=== PATIENT | female | born 1950 | race Caucasian/White ===

== ENCOUNTER 2017-06-19 19:21 | Inpatient (IN) | payer MEDICARE, MEDICAID ==
[2017-06-19] MEDS ORDERED: Ondansetron 4 MG/2 ML SDV IV PRN (20:58)
[2017-06-19] MEDS ORDERED: Sodium Chloride 0.9% 10 ML Syringe FLUSH PRN (20:58)
[2017-06-19] MEDS ORDERED: Furosemide 40 MG/4 ML VIAL IVPUSH ONE (21:02)
--- NOTE | 2017-06-19 21:10 | EDM.PDOC ---
ED HPI GENERAL MEDICAL PROBLEM - General Chief Complaint: General Stated Complaint: possible DVT to right leg Time Seen by Provider: 06/19/17 20:25 Source of Information: Reports: Patient - History of Present Illness INITIAL COMMENTS - FREE TEXT/NARRATIVE: This is a 67yo F here for concerns of shortness of breath and leg edema. Patient states her symptoms have worsened. She is concerned for a clot as she has had a DVT in the past. Denies any chest pain. Patient does have some bruising of the face and eyes from running into the cupboard. Onset: Gradual Duration: Day(s):, Getting Worse Location: Reports: Lower Extremity, Left, Lower Extremity, Right Severity: Moderate Improves with: Reports: None Worsens with: Reports: None Associated Symptoms: Reports: Shortness of Breath - Related Data Allergies Allergy/AdvReac Type Severity Reaction Status Date / Time No Known Allergies Allergy Verified 03/22/16 08:22 Home Meds: Home Meds Amitriptyline HCl [Amitriptyline HCl] 150 mg PO DAILY 09/15/14 [History] Metoprolol Tartrate [Lopressor] 50 mg PO BID 09/15/14 [History] Esomeprazole [NexIUM] 40 mg PO ACBREAKFAST 03/21/16 [History] Past Medical History HEENT History: Reports: Hard of Hearing, Impaired Vision Cardiovascular History: Reports: Hypertension Respiratory History: Reports: COPD Gastrointestinal History: Reports: GERD POOL CLEANER History: Reports: Musculoskeletal History: Reports: Back Pain, Chronic, Osteoarthritis Oncologic (Cancer) History: Reports: Renal - Infectious Disease History Infectious Disease History: Reports: Chicken Pox, Measles, Mumps - Past Surgical History Cardiovascular Surgical History: Reports: Other (See Below) GI Surgical History: Reports: Cholecystectomy Female Surgical History: Reports: Nephrectomy Other Female Surgeries/Procedures: left kidney removed Social & Family History - Family History Family Medical History: Noncontributory - Tobacco Use Smoking Status *Q: Former Smoker Years of Tobacco use: 53 Packs/Tins Daily: 1 Used Tobacco, but Quit: Yes Month Tobacco Last Used: November - Caffeine Use Caffeine Use: Reports: Coffee - Recreational Drug Use Recreational Drug Use: No ED ROS GENERAL - Review of Systems Review Of Systems: ROS reveals no pertinent complaints other than HPI. Constitutional: Reports: No Symptoms HEENT: Reports: No Symptoms Respiratory: Reports: Shortness of Breath Cardiovascular: Reports: Edema Endocrine: Reports: No Symptoms GI/Abdominal: Reports: No Symptoms Musculoskeletal: Reports: No Symptoms Skin: Reports: Bruising Neurological: Reports: No Symptoms Psychiatric: Reports: No Symptoms ED EXAM, GENERAL - Physical Exam Exam: See Below Exam Limited By: No Limitations General Appearance: Alert, WD/WN, No Apparent Distress Eye Exam: Bilateral Eye: EOMI, PERRL Ears: Normal External Exam Nose: Normal Inspection Throat/Mouth: Normal Inspection Head: Atraumatic, Normocephalic, Facial Tenderness, Other (bruising from injury of face) Respiratory/Chest: No Respiratory Distress, Lungs Clear Cardiovascular: Normal Peripheral Pulses, Other (3-4+ edema b/l legs) Peripheral Pulses: 2+: Dorsalis Pedis (L), Dorsalis Pedis (R) GI/Abdominal: Normal Bowel Sounds Back Exam: Normal Inspection Extremities: Pedal Edema Neurological: Alert, Oriented, CN II-XII Intact Psychiatric: Normal Affect, Normal Mood Skin Exam: Warm, Dry, Intact, Other (bruising b/l eyes) Course - Vital Signs Last Recorded V/S: Last Vital Signs Temp 36.8 C 06/19/17 20:25 Pulse 100 06/19/17 20:25 Resp 12 06/19/17 20:25 BP 180/84 H 06/19/17 20:25 Pulse Ox 97 06/19/17 20:25 - Orders/Labs/Meds Orders: Active Orders 24 hr Category Date Time Status Patient Status [ADT] Routine ADT 06/19/17 20:58 Ordered EKG Documentation Completion [RC] ASDIRECTED Care 06/19/17 19:55 Active Insert Nicole Catheter [Insert Urinary Catheter] [OM.PC] Care 06/19/17 21:15 Ordered Q24H Oxygen Therapy [RC] PRN Care 06/19/17 20:58 Ordered Urinary Catheter Assessment [RC] ASDIRECTED Care 06/19/17 21:02 Ordered VTE/DVT Education [RC] Per Unit Routine Care 06/19/17 20:58 Ordered Vital Signs [RC] Q4H Care 06/19/17 20:58 Ordered Regular Diet [DIET] Diet 06/20/17 Breakfast Ordered Chest 1V Frontal [CR] Stat Exams 06/19/17 19:47 Ordered CBC WITH AUTO DIFF [HEME] AM Lab 06/20/17 05:11 Ordered COMPREHENSIVE METABOLIC PN,CMP [CHEM] AM Lab 06/20/17 05:11 Ordered Amitriptyline HCl [Amitriptyline HCl] Med 06/20/17 08:00 Ordered 150 mg PO DAILY Esomeprazole [NexIUM] Med 06/20/17 07:00 Ordered 40 mg PO ACBREAKFAST Furosemide [Lasix] Med 06/20/17 08:00 Ordered 40 mg IVPUSH DAILY Lactated Ringers @ 125 MLS/HR(1000ml) Med 06/19/17 21:00 Ordered Lactated Ringers [Ringers, Lactated] 1,000 ml IV ASDIRECTED Metoprolol Tartrate [Lopressor] Med 06/20/17 08:00 Ordered 50 mg PO BID Ondansetron [Zofran] Med 06/19/17 20:58 Ordered 4 mg IV Q4H PRN Sodium Chloride 0.9% [Saline Flush] Med 06/19/17 20:58 Ordered 10 ml FLUSH ASDIRECTED PRN Peripheral IV Insertion Adult [OM.PC] Routine Oth 06/19/17 20:58 Ordered Resuscitation Status Routine Resus Stat 06/19/17 20:58 Ordered Medication Orders Furosemide (Lasix) 40 mg IVPUSH DAILY CARLITOS Lactated Ringer's (Ringers, Lactated) 1,000 mls @ 125 mls/hr IV ASDIRECTED [facility] Ondansetron HCl (Zofran) 4 mg IV Q4H PRN PRN Reason: Nausea/Vomiting Sodium Chloride (Saline Flush) 10 ml FLUSH ASDIRECTED PRN PRN Reason: Keep Vein Open Labs: Laboratory Tests 06/19/17 06/19/17 06/19/17 Range/Units 19:44 20:00 20:00 WBC 11.2 H D (4.0-11.0) K/uL RBC 3.99 (3.80-5.80) M/uL Hgb 11.5 (11.5-16.5) g/dL Hct 35.2 L (37.0-47.0) % MCV 88 (76-96) fL MCH 28.8 (27.0-32.0) pg MCHC 32.7 (31.0-35.0) g/dL RDW 15.0 (11.0-16.0) % Plt Count 281 (150-500) K/uL MPV 9.0 (6.0-10.0) fL Neut % (Auto) 92.3 H (45.0-70.0) % Lymph % (Auto) 5.1 L (20.0-40.0) % [place] % (Auto) 2.5 L (3.0-10.0) % Eos % (Auto) 0.1 L (1.0-5.0) % Baso % (Auto) 0.0 (0.0-0.5) % Neut # (Auto) 10.29 H (2.00-7.50) K/uL Lymph # (Auto) 0.57 L (1.50-4.00) K/uL [place] # (Auto) 0.28 (0.20-0.80) K/uL Eos # (Auto) 0.01 L (0.04-0.40) K/uL Baso # (Auto) 0.00 L (0.02-0.10) K/uL PT (9.0-11.5) sec INR (1.0-3.5) D-Dimer, Quantitative (0-400) ng/mL Sodium 139 (136-145) mmol/L Potassium 4.4 (3.5-5.1) mmol/L Chloride 103 (98-107) mmol/L Carbon Dioxide 26.7 (21.0-32.0) mmol/L Anion Gap 13.7 (5.0-15.0) mmol/L BUN 44 H D (8-26) mg/dL Creatinine 1.98 H D (0.55-1.02) mg/dL Est Cr Clr Drug Dosing TNP Estimated GFR (MDRD) 25 L (>60) MLS/MIN BUN/Creatinine Ratio 22.2 (6-25) Glucose 111 H (74-100) mg/dL Calcium 9.1 (8.5-10.1) mg/dL Total Bilirubin 0.3 (0.0-1.0) mg/dL AST 44 H (15-37) U/L ALT 42 (12-78) U/L Alkaline Phosphatase 38 L (46-116) U/L Troponin I (0.000-0.060) ng/mL B-Natriuretic Peptide (0-125) pg/mL Total Protein 7.5 (6.4-8.2) g/dL Albumin 3.7 (3.4-5.0) g/dL Globulin 3.8 (2.2-4.2) g/dL Albumin/Globulin Ratio 1.0 (0.8-2.0) TSH, Ultra Sensitive 0.544 D (0.358-3.740) uIU/mL Urine Color Yellow Urine Appearance Clear (CLEAR) Urine pH 6.0 (5.0-8.0) Ur Specific Flushing 1.010 (1.003-1.030) Urine Protein Negative (NEGATIVE) mg/dL Urine Glucose (UA) Negative (NEGATIVE) mg/dL Urine Ketones Negative (NEGATIVE) mg/dL Urine Occult Blood Small (NEGATIVE) Urine Nitrite Negative (NEGATIVE) Urine Bilirubin Negative (NEGATIVE) Urine Urobilinogen 0.2 (0.2-1.0) E.U./dL Ur Leukocyte Esterase Negative (NEGATIVE) Urine RBC Not seen /HPF Urine WBC Not seen /HPF Ur Squamous Epith Cells Few /HPF Urine Bacteria Occasional /HPF 06/19/17 06/19/17 06/19/17 Range/Units 20:00 20:00 20:00 WBC (4.0-11.0) K/uL RBC (3.80-5.80) M/uL Hgb (11.5-16.5) g/dL Hct (37.0-47.0) % MCV (76-96) fL MCH (27.0-32.0) pg MCHC (31.0-35.0) g/dL RDW (11.0-16.0) % Plt Count (150-500) K/uL MPV (6.0-10.0) fL Neut % (Auto) (45.0-70.0) % Lymph % (Auto) (20.0-40.0) % [place] % (Auto) (3.0-10.0) % Eos % (Auto) (1.0-5.0) % Baso % (Auto) (0.0-0.5) % Neut # (Auto) (2.00-7.50) K/uL Lymph # (Auto) (1.50-4.00) K/uL [place] # (Auto) (0.20-0.80) K/uL Eos # (Auto) (0.04-0.40) K/uL Baso # (Auto) (0.02-0.10) K/uL PT 11.2 D (9.0-11.5) sec INR 1.1 D (1.0-3.5) D-Dimer, Quantitative 427 H (0-400) ng/mL Sodium (136-145) mmol/L Potassium (3.5-5.1) mmol/L Chloride (98-107) mmol/L Carbon Dioxide (21.0-32.0) mmol/L Anion Gap (5.0-15.0) mmol/L BUN (8-26) mg/dL Creatinine (0.55-1.02) mg/dL Est Cr Clr Drug Dosing Estimated GFR (MDRD) (>60) MLS/MIN BUN/Creatinine Ratio (6-25) Glucose (74-100) mg/dL Calcium (8.5-10.1) mg/dL Total Bilirubin (0.0-1.0) mg/dL AST (15-37) U/L ALT (12-78) U/L Alkaline Phosphatase (46-116) U/L Troponin I < 0.017 (0.000-0.060) ng/mL B-Natriuretic Peptide 858 H D (0-125) pg/mL Total Protein (6.4-8.2) g/dL Albumin (3.4-5.0) g/dL Globulin (2.2-4.2) g/dL Albumin/Globulin Ratio (0.8-2.0) TSH, Ultra Sensitive (0.358-3.740) uIU/mL Urine Color Urine Appearance (CLEAR) Urine pH (5.0-8.0) Ur Specific [place] (1.003-1.030) Urine Protein (NEGATIVE) mg/dL Urine Glucose (UA) (NEGATIVE) mg/dL Urine Ketones (NEGATIVE) mg/dL Urine Occult Blood (NEGATIVE) Urine Nitrite (NEGATIVE) Urine Bilirubin (NEGATIVE) Urine Urobilinogen (0.2-1.0) E.U./dL Ur Leukocyte Esterase (NEGATIVE) Urine RBC /HPF Urine WBC /HPF Ur Squamous Epith Cells /HPF Urine Bacteria /HPF Meds: Medications Generic Name Dose Route Start Last Admin Trade Name Freq PRN Reason Stop Dose Admin Furosemide 40 mg 06/20/17 08:00 Lasix IVPUSH DAILY CARLITOS Lactated Ringer's 1,000 mls @ 125 mls/hr 06/19/17 21:00 Ringers, Lactated IV ASDIRECTED [facility] Ondansetron HCl 4 mg 06/19/17 20:58 Zofran IV Q4H PRN Nausea/Vomiting Sodium Chloride 10 ml 06/19/17 20:58 Saline Flush FLUSH ASDIRECTED PRN Keep Vein Open Discontinued Medications Generic Name Dose Route Start Last Admin Trade Name Luzmaria PRN Reason Stop Dose Admin Furosemide 40 mg 06/19/17 21:02 Lasix IVPUSH 06/19/17 21:03 NOW ONE Departure - Departure Time of Disposition: 21:00 Disposition: Admitted As Inpatient 65 Condition: Fair Clinical Impression: Acute on chronic kidney failure Qualifiers: Acute renal failure type: unspecified Chronic kidney disease stage: stage 4 ( severe) Qualified Code(s): N17.9 - Acute kidney failure, unspecified; N18.4 - Chronic kidney disease, stage 4 (severe); N18.4 - Chronic kidney disease, stage 4 (severe); N18.4 - Chronic kidney disease, stage 4 (severe); N18.4 - Chronic kidney disease, stage 4 (severe) CHF (congestive heart failure) Qualifiers: Congestive heart failure type: unspecified congestive heart failure type Congestive heart failure chronicity: acute Qualified Code(s): I50.9 - Heart failure, unspecified - Discharge Information Referrals: PCP,None [Primary Care Provider] - Care Plan Goals: Patient will be admitted for Acute on chronic renal failure with suspected CHF. Patient placed on telemetry and we will monitor strict I/Os. Repeat labs in am. Start lasix while closely monitoring renal function and gentle hydration. Nicole cath for I/O's. - Problem List Review Problem List Initiated/Reviewed/Updated: Yes - My Orders Last 24 Hours: My Active Orders 06/19/17 19:47 Chest 1V Frontal [CR] Stat 06/19/17 19:55 EKG Documentation Completion [RC] ASDIRECTED 06/19/17 20:58 Patient Status [ADT] Routine Oxygen Therapy [RC] PRN VTE/DVT Education [RC] Per Unit Routine Vital Signs [RC] Q4H Ondansetron [Zofran] 4 mg IV Q4H PRN Sodium Chloride 0.9% [Saline Flush] 10 ml FLUSH ASDIRECTED PRN Peripheral IV Insertion Adult [OM.PC] Routine Resuscitation Status Routine 06/19/17 21:00 Lactated Ringers @ 125 MLS/HR(1000ml) Lactated Ringers [Ringers, Lactated] 1, 000 ml IV ASDIRECTED 06/19/17 21:02 Urinary Catheter Assessment [RC] ASDIRECTED 06/19/17 21:15 Insert Nicole Catheter [Insert Urinary Catheter] [OM.PC] Q24H 06/20/17 05:11 CBC WITH AUTO DIFF [HEME] AM COMPREHENSIVE METABOLIC PN,CMP [CHEM] AM 06/20/17 07:00 Esomeprazole [NexIUM] 40 mg PO ACBREAKFAST 06/20/17 08:00 Amitriptyline HCl [Amitriptyline HCl] 150 mg PO DAILY Furosemide [Lasix] 40 mg IVPUSH DAILY Metoprolol Tartrate [Lopressor] 50 mg PO BID 06/20/17 Breakfast Regular Diet [DIET] - Assessment/Plan Last 24 Hours: My Active Orders 06/19/17 19:47 Chest 1V Frontal [CR] Stat 06/19/17 19:55 EKG Documentation Completion [RC] ASDIRECTED 06/19/17 20:58 Patient Status [ADT] Routine Oxygen Therapy [RC] PRN VTE/DVT Education [RC] Per Unit Routine Vital Signs [RC] Q4H Ondansetron [Zofran] 4 mg IV Q4H PRN Sodium Chloride 0.9% [Saline Flush] 10 ml FLUSH ASDIRECTED PRN Peripheral IV Insertion Adult [OM.PC] Routine Resuscitation Status Routine 06/19/17 21:00 Lactated Ringers @ 125 MLS/HR(1000ml) Lactated Ringers [Ringers, Lactated] 1, 000 ml IV ASDIRECTED 06/19/17 21:02 Urinary Catheter Assessment [RC] ASDIRECTED 06/19/17 21:15 Insert Nicole Catheter [Insert Urinary Catheter] [OM.PC] Q24H 06/20/17 05:11 CBC WITH AUTO DIFF [HEME] AM COMPREHENSIVE METABOLIC PN,CMP [CHEM] AM 06/20/17 07:00 Esomeprazole [NexIUM] 40 mg PO ACBREAKFAST 06/20/17 08:00 Amitriptyline HCl [Amitriptyline HCl] 150 mg PO DAILY Furosemide [Lasix] 40 mg IVPUSH DAILY Metoprolol Tartrate [Lopressor] 50 mg PO BID 06/20/17 Breakfast Regular Diet [DIET]
[2017-06-19] MEDS: Lactated Ringers 1,000 ML IV SCH (21:42)
[2017-06-19] MEDS ORDERED: Metoprolol Tartrate 50 MG Tab ONE (21:53)
[2017-06-19] MEDS ORDERED: Amitriptyline 25 MG Tab ONE (22:02)
[2017-06-19] MEDS: Metoprolol Tartrate 50 MG Tab PO SCH (22:03)
[2017-06-20] MEDS: Lactated Ringers 1,000 ML IV SCH ×2 (06:27→16:02)
[2017-06-20] MEDS: Esomeprazole 40 MG Cap PO SCH (07:57)
[2017-06-20] MEDS ORDERED: AMITRIPTYLINE HCL 150 MG PO SCH (08:00)
[2017-06-20] MEDS ORDERED: Furosemide 40 MG/4 ML VIAL IVPUSH SCH (08:00)
--- NOTE | 2017-06-20 09:42 | PCM.PN ---
- General Info Date of Service: 06/20/17 Subjective Update: Patient states she is breathing much better. Denies any chest pain but continues to have some right leg pain. She does have a history of DVT's. Functional Status: Reports: Pain Controlled, Tolerating Diet, Ambulating, Urinating - Review of Systems General: Reports: No Symptoms Pulmonary: Reports: No Symptoms Cardiovascular: Reports: Edema Gastrointestinal: Reports: No Symptoms Musculoskeletal: Reports: Leg Pain Skin: Reports: No Symptoms Neurological: Reports: No Symptoms Psychiatric: Reports: No Symptoms - Patient Data Vitals - Most Recent: Last Vital Signs Temp 36.4 C 06/20/17 04:00 Pulse 82 06/20/17 04:00 Resp 12 06/20/17 04:00 BP 145/90 H 06/19/17 22:03 Pulse Ox 96 06/20/17 04:00 Weight - Most Recent: 76.975 kg I&O - Last 24 Hours: Intake & Output 06/19/17 06/20/17 06/20/17 22:59 06:59 14:59 Intake Total 1250 Output Total 5300 Balance -4050 Lab Results Last 24 Hours: Laboratory Results - last 24 hr 06/20/17 06/20/17 Range/Units 07:20 07:20 WBC 9.7 (4.0-11.0) K/uL RBC 3.74 L (3.80-5.80) M/uL Hgb 10.8 L (11.5-16.5) g/dL Hct 32.7 L (37.0-47.0) % MCV 87 (76-96) fL MCH 28.9 (27.0-32.0) pg MCHC 33.0 (31.0-35.0) g/dL RDW 14.9 (11.0-16.0) % Plt Count 266 (150-500) K/uL MPV 9.5 (6.0-10.0) fL Neut % (Auto) 68.7 (45.0-70.0) % Lymph % (Auto) 22.4 (20.0-40.0) % [place] % (Auto) 8.7 (3.0-10.0) % Eos % (Auto) 0.2 L (1.0-5.0) % Baso % (Auto) 0.0 (0.0-0.5) % Neut # (Auto) 6.68 (2.00-7.50) K/uL Lymph # (Auto) 2.18 (1.50-4.00) K/uL [place] # (Auto) 0.85 H (0.20-0.80) K/uL Eos # (Auto) 0.02 L (0.04-0.40) K/uL Baso # (Auto) 0.00 L (0.02-0.10) K/uL Sodium 143 (136-145) mmol/L Potassium 3.6 (3.5-5.1) mmol/L Chloride 105 (98-107) mmol/L Carbon Dioxide 28.9 (21.0-32.0) mmol/L Anion Gap 12.7 (5.0-15.0) mmol/L BUN 47 H (8-26) mg/dL Creatinine 1.74 H (0.55-1.02) mg/dL Est Cr Clr Drug Dosing 24.47 mL/min Estimated GFR (MDRD) 29 L (>60) MLS/MIN BUN/Creatinine Ratio 27.0 H (6-25) Glucose 85 (74-100) mg/dL Calcium 8.8 (8.5-10.1) mg/dL Total Bilirubin 0.4 D (0.0-1.0) mg/dL AST 31 (15-37) U/L ALT 36 (12-78) U/L Alkaline Phosphatase 30 L (46-116) U/L Total Protein 6.5 (6.4-8.2) g/dL Albumin 3.2 L (3.4-5.0) g/dL Globulin 3.3 (2.2-4.2) g/dL Albumin/Globulin Ratio 1.0 (0.8-2.0) Med Orders - Current: Current Medications Amitriptyline HCl (Elavil) 150 mg PO BEDTIME CARLITOS Esomeprazole Magnesium (Nexium) 40 mg PO ACBREAKFAST CARLITOS Last Admin: 06/20/17 07:57 Dose: 40 mg Furosemide (Lasix) 40 mg IVPUSH DAILY CARLITOS Last Admin: 06/20/17 07:57 Dose: 40 mg Lactated Ringer's (Ringers, Lactated) 1,000 mls @ 125 mls/hr IV ASDIRECTED CARLITOS Last Admin: 06/20/17 06:27 Dose: 125 mls/hr Metoprolol Tartrate (Lopressor) 50 mg PO BID [facility] Last Admin: 06/19/17 22:03 Dose: 50 mg Ondansetron HCl (Zofran) 4 mg IV Q4H PRN PRN Reason: Nausea/Vomiting Sodium Chloride (Saline Flush) 10 ml FLUSH ASDIRECTED PRN PRN Reason: Keep Vein Open Discontinued Medications Amitriptyline HCl (Elavil) Confirm Administered Dose 150 mg .ROUTE .STK-MED ONE Stop: 06/19/17 22:03 Last Admin: 06/20/17 08:05 Dose: Not Given Furosemide (Lasix) 40 mg IVPUSH NOW ONE Stop: 06/19/17 21:03 Last Admin: 06/19/17 21:41 Dose: 40 mg Metoprolol Tartrate (Lopressor) Confirm Administered Dose 50 mg .ROUTE .STK-MED ONE Stop: 06/19/17 21:54 Last Admin: 06/20/17 08:04 Dose: Not Given Non-Formulary Medication (Amitriptyline Hcl [Amitriptyline Hcl]) 150 mg PO DAILY [facility] Last Admin: 06/19/17 22:04 Dose: 150 mg - Exam General: Alert, Oriented, Cooperative HEENT: Pupils Equal, Pupils Reactive, EOMI Lungs: Clear to Auscultation, Normal Respiratory Effort Cardiovascular: Regular Rate, Regular Rhythm GI/Abdominal Exam: Normal Bowel Sounds Extremities: Pedal Edema, Leg Pain (right) Skin: Warm, Dry, Intact Psy/Mental Status: Alert, Normal Affect, Normal Mood - Problem List & Annotations (1) Acute on chronic kidney failure SNOMED Code(s): 236537464 Code(s): N17.9 - ACUTE KIDNEY FAILURE, UNSPECIFIED; N18.9 - CHRONIC KIDNEY DISEASE, UNSPECIFIED Status: Acute Priority: High Current Visit: Yes Qualifiers: Acute renal failure type: unspecified Chronic kidney disease stage: stage 4 (severe) Qualified Code(s): N17.9 - Acute kidney failure, unspecified; N18.4 - Chronic kidney disease, stage 4 (severe); N18.4 - Chronic kidney disease , stage 4 (severe); N18.4 - Chronic kidney disease, stage 4 (severe); N18.4 - Chronic kidney disease, stage 4 (severe) (2) CHF (congestive heart failure) SNOMED Code(s): 96954901 Code(s): I50.9 - HEART FAILURE, UNSPECIFIED Status: Acute Priority: High Current Visit: Yes Qualifiers: Congestive heart failure type: unspecified congestive heart failure type Congestive heart failure chronicity: acute Qualified Code(s): I50.9 - Heart failure, unspecified - Problem List Review Problem List Initiated/Reviewed/Updated: Yes - My Orders Last 24 Hours: My Active Orders 06/19/17 21:02 Urinary Catheter Assessment [RC] Q12H 06/19/17 21:14 Telemetry Monitoring [Cardiac Monitoring] [RC] .As Directed 06/19/17 21:15 Insert Nicole Catheter [Insert Urinary Catheter] [OM.PC] Q24H 06/20/17 07:00 Esomeprazole [NexIUM] 40 mg PO ACBREAKFAST 06/20/17 08:00 Furosemide [Lasix] 40 mg IVPUSH DAILY Metoprolol Tartrate [Lopressor] 50 mg PO BID 06/20/17 08:03 CULTURE MRSA SURVEY [RM] Routine 06/20/17 08:09 MAYURI Hose [Antiembolic Hose] [OM.PC] Routine 06/20/17 20:00 Amitriptyline [Elavil] 150 mg PO BEDTIME Furosemide [Lasix] 40 mg IVPUSH BID 06/20/17 Breakfast Heart Healthy Diet [DIET] - Plan Plan:: Improving renal function. Improved symptomatically. We will continue diuresis and repeat renal function in am. Continue gentle hydration. ECHO ordered - but no one available to do ECHO until next week. U/S of right leg Venous ordered. F/u results.
--- NOTE | 2017-06-20 11:25 | CR ---
DATE OF SERVICE: 06/19/17 CLINICAL DATA: shortness of breath AP PORTABLE CHEST: Comparison is made to a prior exam dated 06/12/17. The heart and lungs are stable. No evidence of acute intrathoracic disease. [id number] [facility]
[2017-06-20] MEDS: Metoprolol Tartrate 50 MG Tab PO SCH (11:26)
--- NOTE | 2017-06-20 11:51 | US ---
DATE OF SERVICE: 06/20/17 CLINICAL DATA: leg pain RIGHT LEG VENOUS DOPPLER: There is echogenic material within the right common femoral vein and proximal superficial femoral vein. They are noncompressible with no Doppler flow consistent with DVT. The remaining deep venous system is negative. IMPRESSION: Positive exam for DVT. The patient's physician was notified of the finding by telephone and by [facility] preliminary radiology report. [id number] [facility]
[2017-06-20] MEDS ORDERED: traMADol 50 MG Tab PO PRN (14:31)
[2017-06-20] MEDS ORDERED: Non-Formulary Medication 1 Each (Hydrocodone/Acetaminophen [Hydrocodon-Acetaminoph 7.5-325 PO PRN (14:31)
[2017-06-20] MEDS ORDERED: Metoprolol Tartrate 50 MG Tab PO SCH (14:32)
[2017-06-20] MEDS ORDERED: Acetaminophen/HYDROcodone 325-10 MG Tab PO PRN (15:12)
[2017-06-20] MEDS ORDERED: Aspirin 81 MG Tab.Chew ONE (16:20)
[2017-06-20] MEDS ORDERED: Levofloxacin 750 MG Tab ONE (16:20)
[2017-06-20] MEDS: Furosemide 40 MG/4 ML VIAL IVPUSH SCH (16:23)
[2017-06-20] MEDS: Levofloxacin 750 MG Tab PO SCH (16:23)
[2017-06-20] MEDS: Aspirin 81 MG Tab.EC PO SCH (16:24)
[2017-06-20] MEDS: Apixaban 2.5 MG Tab PO SCH ×2 (16:25→19:45)
--- NOTE | 2017-06-20 17:48 | PCM.SN ---
- Free Text/Narrative Note: Discussed DVT and use of anticoagulation with risks and benefits. Patient agrees to plan of care and use of Eliquis.
[2017-06-20] MEDS: Diltiazem IR 60 MG Tab PO SCH (19:30)
[2017-06-20] MEDS: Metoprolol Tartrate 25 MG Tab PO SCH (19:31)
[2017-06-20] MEDS ORDERED: Non-Formulary Medication 1 Each (Fluticasone/Salmeterol [Advair 250-50 Diskus] 1 EACH) INH SCH (20:00)
[2017-06-20] MEDS ORDERED: DILTIAZEM 60 MG PO SCH (20:00)
[2017-06-20] MEDS ORDERED: Amitriptyline 25 MG Tab PO SCH (20:00)
[2017-06-20] MEDS ORDERED: Apixaban 5 MG Tab PO SCH (20:00)
[2017-06-20] MEDS: Formoterol/Mometasone 200-5 MCG 8.8 GM Inhaler IH SCH (21:00)
[2017-06-21] MEDS: Lactated Ringers 1,000 ML IV SCH (00:32)
[2017-06-21] MEDS: Esomeprazole 40 MG Cap PO SCH (06:26)
[2017-06-21] MEDS: Aspirin 81 MG Tab.EC PO SCH (07:33)
[2017-06-21] MEDS: Metoprolol Tartrate 25 MG Tab PO SCH (07:33)
[2017-06-21] MEDS: Furosemide 40 MG/4 ML VIAL IVPUSH SCH (07:33)
[2017-06-21] MEDS: Levofloxacin 750 MG Tab PO SCH (07:33)
[2017-06-21] MEDS: Diltiazem IR 60 MG Tab PO SCH (07:34)
[2017-06-21] MEDS: Formoterol/Mometasone 200-5 MCG 8.8 GM Inhaler IH SCH (07:36)
[2017-06-21] MEDS: Apixaban 2.5 MG Tab PO SCH (07:36)
[2017-06-21 07:37] VITALS: BP 155/76
[2017-06-21] MEDS ORDERED: CALCITONIN INH SCH (08:00)
[2017-06-21] MEDS ORDERED: Non-Formulary Medication 1 Each (Fenofibrate [Fenofibrate] 160 MG) PO SCH (08:00)
--- NOTE | 2017-06-21 15:51 | PCM.DCSUM1 ---
Discharge Summary - Discharge Data Discharge Date: 06/21/17 Discharge Disposition: Home, Self-Care 01 Condition: Good - Discharge Diagnosis/Problem(s) (1) Acute on chronic kidney failure SNOMED Code(s): 892714202 ICD Code: N17.9 - ACUTE KIDNEY FAILURE, UNSPECIFIED; N18.9 - CHRONIC KIDNEY DISEASE, UNSPECIFIED Status: Acute Priority: High Qualifiers: Acute renal failure type: unspecified Chronic kidney disease stage: stage 4 (severe) Qualified Code(s): N17.9 - Acute kidney failure, unspecified; N18.4 - Chronic kidney disease, stage 4 (severe); N18.4 - Chronic kidney disease , stage 4 (severe); N18.4 - Chronic kidney disease, stage 4 (severe); N18.4 - Chronic kidney disease, stage 4 (severe) (2) CHF (congestive heart failure) SNOMED Code(s): 81559181 ICD Code: I50.9 - HEART FAILURE, UNSPECIFIED Status: Acute Priority: High Qualifiers: Congestive heart failure type: unspecified congestive heart failure type Congestive heart failure chronicity: acute Qualified Code(s): I50.9 - Heart failure, unspecified - Patient Instructions Diet: Usual Diet as Tolerated Activity: As Tolerated Notify Provider of: Fever - Discharge Plan Home Medications: Home Meds Amitriptyline HCl [Amitriptyline HCl] 150 mg PO BEDTIME 09/15/14 [History] Metoprolol Tartrate [Lopressor] 25 mg PO BID 09/15/14 [History] Esomeprazole [NexIUM] 40 mg PO ACBREAKFAST 03/21/16 [History] Aspirin [Halfprin] 81 mg PO DAILY 06/19/17 [History] Calcitonin ([place]) [Miacalcin] 200 unit INH DAILY 06/19/17 [History] Diltiazem [Cardizem SR] 60 mg PO BID 06/19/17 [History] Fenofibrate 160 mg PO DAILY 06/19/17 [History] Fluticasone/Salmeterol [Advair 250-50 Diskus] 1 each INH BID 06/19/17 [History] Hydrocodone/Acetaminophen [Hydrocodon-Acetaminoph 7.5-325] 1 tab PO Q4HR PRN [History] Levofloxacin 750 mg PO DAILY 06/19/17 [History] traMADol [Ultram] 50 mg PO BID PRN 06/19/17 [History] predniSONE [Prednisone] See Taper PO DAILY 06/20/17 [History] Patient Handouts: Furosemide injection, Apixaban oral tablets, Deep Vein Thrombosis Forms: ED Department Discharge Referrals: PCP,None [Primary Care Provider] - - Discharge Summary/Plan Comment DC Time >30 min.: Yes Discharge Summary/Plan Comment: Discussed discharge and follow up. Patient will continue on Eliquis for her DVT. Discussed lifetime DVT prophylaxis due to recurrence and for further workup and management of her hypercoagulable state. Patient agrees on f/u for renal function and ECHO. F/u next week for ECHO and re-evaluation. - Patient Data Vitals - Most Recent: Last Vital Signs Temp 36.1 C 06/20/17 16:00 Pulse 71 06/21/17 07:34 Resp 16 06/20/17 19:31 BP 155/76 H 06/21/17 07:34 Pulse Ox 96 06/20/17 20:58 Weight - Most Recent: 71.849 kg I&O - Last 24 hours: Intake & Output 06/21/17 06/21/17 06/21/17 06:59 14:59 22:59 Intake Total 1980 Output Total 2900 Balance -920 Lab Results - Last 24 hrs: Laboratory Results - last 24 hr 06/21/17 06/21/17 Range/Units 07:20 07:20 WBC 8.4 (4.0-11.0) K/uL RBC 4.51 (3.80-5.80) M/uL Hgb 11.2 L (11.5-16.5) g/dL Hct 36.1 L (37.0-47.0) % MCV 86 (76-96) fL MCH 29.0 (27.0-32.0) pg MCHC 33.9 (31.0-35.0) g/dL RDW 14.8 (11.0-16.0) % Plt Count 225 (150-500) K/uL MPV 9.4 (6.0-10.0) fL Neut % (Auto) 48.4 (45.0-70.0) % Lymph % (Auto) 37.7 (20.0-40.0) % [place] % (Auto) 11.5 H (3.0-10.0) % Eos % (Auto) 2.2 (1.0-5.0) % Baso % (Auto) 0.2 (0.0-0.5) % Neut # (Auto) 4.05 (2.00-7.50) K/uL Lymph # (Auto) 3.15 (1.50-4.00) K/uL [place] # (Auto) 0.96 H (0.20-0.80) K/uL Eos # (Auto) 0.18 (0.04-0.40) K/uL Baso # (Auto) 0.02 (0.02-0.10) K/uL Sodium 140 (136-145) mmol/L Potassium 4.0 (3.5-5.1) mmol/L Chloride 101 (98-107) mmol/L Carbon Dioxide 31.6 (21.0-32.0) mmol/L Anion Gap 11.4 (5.0-15.0) mmol/L BUN 48 H (8-26) mg/dL Creatinine 2.05 H (0.55-1.02) mg/dL Est Cr Clr Drug Dosing 20.77 mL/min Estimated GFR (MDRD) 24 L (>60) MLS/MIN BUN/Creatinine Ratio 23.4 (6-25) Glucose 73 L (74-100) mg/dL Calcium 9.1 (8.5-10.1) mg/dL Med Orders - Current: Current Medications Discontinued Medications Hydrocodone Bitart/Acetaminophen ([place] 325-10 Mg) 1 tab PO Q4H PRN PRN Reason: MODERATE PAIN Amitriptyline HCl (Elavil) Confirm Administered Dose 150 mg .ROUTE .STK-MED ONE Stop: 06/19/17 22:03 Last Admin: 06/20/17 08:05 Dose: Not Given Amitriptyline HCl (Elavil) 150 mg PO BEDTIME [facility] Last Admin: 06/20/17 19:28 Dose: 150 mg Apixaban (Eliquis) 10 mg PO BID [facility] Last Admin: 06/21/17 07:36 Dose: 10 mg Aspirin (Halfprin) 81 mg PO DAILY [facility] Last Admin: 06/21/17 07:33 Dose: 81 mg Aspirin (Aspirin) Confirm Administered Dose 81 mg .ROUTE .STK-MED ONE Stop: 06/20/17 16:21 Last Admin: 06/20/17 16:44 Dose: Not Given Diltiazem HCl (Cardizem) 60 mg PO BID [facility] Last Admin: 06/21/17 07:34 Dose: 60 mg Esomeprazole Magnesium (Nexium) 40 mg PO ACBREAKFAST [facility] Last Admin: 06/21/17 06:26 Dose: 40 mg Furosemide (Lasix) 40 mg IVPUSH NOW ONE Stop: 06/19/17 21:03 Last Admin: 06/19/17 21:41 Dose: 40 mg Furosemide (Lasix) 40 mg IVPUSH DAILY [facility] Last Admin: 06/20/17 07:57 Dose: 40 mg Furosemide (Lasix) 40 mg IVPUSH BID@0800,1600 [facility] Last Admin: 06/21/17 07:33 Dose: 40 mg Lactated Ringer's (Ringers, Lactated) 1,000 mls @ 125 mls/hr IV ASDIRECTED [facility] Last Admin: 06/21/17 00:32 Dose: 125 mls/hr Levofloxacin (Levaquin) 750 mg PO DAILY [facility] Last Admin: 06/21/17 07:33 Dose: 750 mg Levofloxacin (Levaquin) Confirm Administered Dose 750 mg .ROUTE .STK-MED ONE Stop: 06/20/17 16:21 Last Admin: 06/20/17 16:44 Dose: Not Given Metoprolol Tartrate (Lopressor) 50 mg PO BID [facility] Last Admin: 06/20/17 11:26 Dose: Not Given Metoprolol Tartrate (Lopressor) Confirm Administered Dose 50 mg .ROUTE .[facility]-MED ONE Stop: 06/19/17 21:54 Last Admin: 06/20/17 08:04 Dose: Not Given Metoprolol Tartrate (Lopressor) 25 mg PO BID [facility] Last Admin: 06/21/17 07:33 Dose: 25 mg Mometasone Furoate/Formoterol Fumar (Dulera 200-5 Mcg) 2 puff IH BID [facility] Last Admin: 06/21/17 07:36 Dose: 2 puff Non-Formulary Medication (Amitriptyline Hcl [Amitriptyline Hcl]) 150 mg PO DAILY [facility] Last Admin: 06/19/17 22:04 Dose: 150 mg Non-Formulary Medication (Calcitonin ([place]) [Miacalcin]) 200 unit INH DAILY [facility] Non-Formulary Medication (Fenofibrate [Fenofibrate]) 160 mg PO DAILY [facility] Ondansetron HCl (Zofran) 4 mg IV Q4H PRN PRN Reason: Nausea/Vomiting Sodium Chloride (Saline Flush) 10 ml FLUSH ASDIRECTED PRN PRN Reason: Keep Vein Open Tramadol HCl (Ultram) 50 mg PO BID PRN PRN Reason: Pain *Q Meaningful Use (DIS) - VTE *Q VTE Criteria *Q: - Stroke *Q Stroke Criteria *Q: - AMI *Q AMI Criteria *Q:
== END 2017-06-21 12:52 | disposition home or self-care (01) | DRG 292 ==
LOC: LB.ED 19:21 → LB.MS 20:58 → UNDOADMIN 21:00 → LB.MS 21:00
PROVIDERS: ADMIT Family Medicine; ATTEND Family Medicine
DX: I13.0 Hypertensive heart and chronic kidney disease with heart failure and stage 1 through stage 4 chronic kidney disease, or unspecified chronic kidney disease (principal); N18.4 Chronic kidney disease, stage 4 (severe); N17.9 Acute kidney failure, unspecified; I82.411 Acute embolism and thrombosis of right femoral vein; I50.9 Heart failure, unspecified; J44.9 Chronic obstructive pulmonary disease, unspecified; Z86.718 Personal history of other venous thrombosis and embolism; Z87.891 Personal history of nicotine dependence; R06.02 Shortness of breath; R60.9 Edema, unspecified; Z85.528 Personal history of other malignant neoplasm of kidney; Z90.5 Acquired absence of kidney; M19.90 Unspecified osteoarthritis, unspecified site; M54.9 Dorsalgia, unspecified; G89.29 Other chronic pain; K21.9 Gastro-esophageal reflux disease without esophagitis; H54.7 Unspecified visual loss; H91.90 Unspecified hearing loss, unspecified ear; Z79.82 Long term (current) use of aspirin; Z79.01 Long term (current) use of anticoagulants; Z79.52 Long term (current) use of systemic steroids
CPT/HCPCS: 36415; 71010; 80048; 80053; 81001; 83880; 84443; 84484; 85025; 85379; 85610; 93005; 93971-RT; 99285-25; A9270-GY; J1940; J7120